=== PATIENT | male | born 1980 | race Caucasian/White ===

== ENCOUNTER 2016-08-20 10:10 | Emergency (ER) | payer OTHER ==
[~2016-08-20] VITALS: Ht 167.6 cm; Wt 63.5 kg
[~2016-08-20 10:10] MED LIST: ANTIVERT 25MG #1 PAC PO; AUGMENTIN 875 M1 TAB PO
[2016-08-20 10:15] VITALS: BP 132/78
--- NOTE | 2016-08-20 10:24 | ED AMS/SEIZURE/WEAK/DIZZY ---
History of Present Illness General Chief Complaint: Dizziness Stated Complaint: DIZZY LIGHTHEADED X 4DYS Source: patient Exam Limitations: no limitations Vital Signs & Intake/Output Vital Signs & Intake/Output Vital Signs Date Time Temp Pulse Resp B/P Pulse O2 O2 Flow FiO2 Ox Delivery Rate 08/20 1015 98.9 87 16 132/78 100 Room Air Allergies Coded Allergies: NO KNOWN ALLERGIES (11/01/11) Reconcile Medications AMOXICILLIN/POTASSIUM CLAV (Augmentin 875-125 Tablet) 875 MG/125 MG TAB 1 TAB PO BID SINUSITIS Meclizine (Antivert) 25 MG PAC 1-2 TAB PO TID PRN DIZZINESS Triage Note: PT TO ED FOR INTERMITTENT LIGHTHEADEDNESS X 4 DAYS AND BILATERAL KNEE PRESSURE. REPORTING SYMPTOMS MOSTLY RESOLVE WHEN HE LIES DOWN. DENIES CP, SOB, OLVERA, NAUSEA, VOMITING. Triage Nurses Notes Reviewed? yes HPI: Patient presents with feeling lightheaded and off balance and like he cannot get comfortable and like his muscles are very tense off for the past 4 days. The symptoms are constant. There are no aggravating or mitigating factors. He denies any muscle pain. He denies any fevers or chills. There is no difficulty breathing. There is no chest pain. There is no dysuria. Past History Travel History Traveled to [place] past 21 day No Medical History Any Pertinent Medical History? see below for history Neurological: NONE EENT: NONE Cardiovascular: NONE Respiratory: NONE Gastrointestinal: NONE Hepatic: NONE Renal: NONE Musculoskeletal: NONE Psychiatric: NONE Endocrine: NONE Blood Disorders: NONE Cancer(s): NONE Surgical History Surgical History: non-contributory, N Psychosocial History What is your primary language Hungarian Tobacco Use: Never used ETOH Use: occasional use Illicit Drug Use: denies illicit drug use Family History Hx Contributory? No Review of Systems Review of Systems Constitutional: Reports: no symptoms. EENTM: Reports: no symptoms. Respiratory: Reports: no symptoms. Cardiovascular: Reports: no symptoms. GI: Reports: no symptoms. Genitourinary: Reports: no symptoms. Musculoskeletal: Reports: see HPI, muscle stiffness. Skin: Reports: no symptoms. Neurological/Psychological: Reports: see HPI. Hematologic/Endocrine: Reports: no symptoms. Immunologic/Allergic: Reports: no symptoms. All Other Systems: Reviewed and Negative Physical Exam Physical Exam General Appearance: well developed/nourished, alert, awake, anxious, mild distress Head: atraumatic, normal appearance Eyes: Bilateral: PERRL, EOMI. Ears, Nose, Throat: normal pharynx, normal ENT inspection, hearing grossly normal Neck: normal inspection, supple, full range of motion Respiratory: normal breath sounds, chest non-tender, no respiratory distress, lungs clear Cardiovascular: regular rate/rhythm, normal peripheral pulses Gastrointestinal: normal bowel sounds, soft, non-tender, no organomegaly Back: normal inspection, normal range of motion Extremities: normal range of motion, MUSCLES ARE VERY TENSE AND IT TAKES A WHILE TO GET HIM TO RELAX ENOUGH TO RELAX HIS MUSCLES. Neurologic/Psych: no motor/sensory deficits, awake, alert, oriented x 3, normal gait, normal mood/affect Reflexes: 3+: bicep (R), bicep (L), knee (R), knee (L), ankle (R), ankle (L). Skin: intact, normal color, warm/dry Lymphatic: no anterior cervical gisella Core Measures ACS in differential dx? No CVA/TIA Diagnosis: No Severe Sepsis Present: No Septic Shock Present: No Progress Differential Diagnosis: drug intoxication, electrolyte imbalance, multiple sclerosis Plan of Care: Orders Procedure Date/time Status Add-on Test (ER Only) 08/20 1049 Active URINE DRUGS OF ABUSE 08/20 1040 Complete URINALYSIS 08/20 1040 Complete THYROID STIMULATING HORMONE 08/20 1040 Complete TROPONIN LEVEL 08/20 1040 Complete ETHANOL 08/20 1040 Complete COMPREHENSIVE METABOLIC PANEL 08/20 1040 Complete CREATINE PHOSPHOKINASE 08/20 1040 Complete CBC WITHOUT DIFFERENTIAL 08/20 1040 Complete EKG 08/20 1016 Active Laboratory Tests 08/20/16 1105: Serum Alcohol < 10.0 08/20/16 1105: Anion Gap 12, Estimated GFR > 60, BUN/Creatinine Ratio 15.0, Glucose 110 H, Calcium 10.4 H, Total Bilirubin 0.8, AST 14 L, ALT 32, Alkaline Phosphatase 60 , Creatine Kinase 47 L, Troponin I < 0.01, Total Protein 8.1, Albumin 4.9, Globulin 3.2, Albumin/Globulin Ratio 1.5, TSH 0.880, CBC w Diff NO MAN DIFF REQ, RBC 5.50, MCV 85.3, MCH 28.3, RDW 13.3, MPV 7.7, Gran % 71.9, Lymphocytes % 17.5 L, Monocytes % 7.6, Eosinophils % 2.0, Basophils % 1.0, Absolute Granulocytes 5.8, Absolute Lymphocytes 1.4, Absolute Monocytes 0.6, Absolute Eosinophils 0.2, Absolute Basophils 0.1, PUBS MCHC 33.2, Urine Opiates Screen < 100.00, Methadone Screen < 40, Barbiturate Screen < 60, Ur Phencyclidine Scrn < 6.00, Amphetamines Screen < 100, U Benzodiazepines Scrn < 85, Urine Cocaine Screen < 50, Urine Cannabis Screen < 5.00, Urine Color YEL, Urine Clarity CLEAR, Urine pH 7.0, Ur Specific [place] 1.010, Urine Protein NEG, Urine Ketones NEG, Urine Nitrite NEG, Urine Bilirubin NEG, Urine Urobilinogen 0.2, Ur Leukocyte Esterase NEG, Ur Microscopic EXAM NOT REQUIRED, Urine Hemoglobin NEG, Urine Glucose NEG Initial ED EKG: NSR, no ST T wave changes Departure Departure Disposition: HOME OR SELF CARE Condition: Stable Clinical Impression Primary Impression: Muscle hypertonicity Referrals: SHAWANDA VARGAS MD (PCP/Family) MAKENNA VICTORIA,ARMINDA Parsons Additional Instructions: FOLLOW UP WITH DR. MENSAH Departure Forms: Customer Survey General Discharge Information
[2016-08-20 11:23] LABS: ABSOLUTE BASOPHIL COUNT 0.1 /CUMM (0.0-0.2); ABSOLUTE EOSINOPHIL COUNT 0.2 /CUMM (0.0-0.7); ABSOLUTE GRANULOCYTE CT 5.8 /CUMM (1.4-6.5); ABSOLUTE LYMPH COUNT 1.4 /CUMM (1.2-3.4); ABSOLUTE MONOCYTE COUNT 0.6 /CUMM (0.10-0.60); GRANULOCYTE % 71.9 % (42.2-75.2); HEMATOCRIT 46.9 % (42-52); MEAN CORPUSCULAR HGB 28.3 PG (27.0-31.0); MEAN CORPUSCULAR HGB CONC 33.2 G/DL (33.0-37.0); MEAN CORPUSCULAR VOLUME 85.3 FL (80.0-94.0); MEAN PLATELET VOLUME 7.7 FL (7.4-10.4); PLATELET COUNT 318 /CUMM (130-400); RBC DISTRIBUTION WIDTH 13.3 % (11.5-14.5); WHITE BLOOD CELL COUNT 8.1 /CUMM (4.8-10.8)
== END 2016-08-20 12:50 ==
LOC: ERH 10:10
PROVIDERS: Emergency Medicine
DX: R42 Dizziness and giddiness (principal)
CPT/HCPCS: 80307; 81003; 93005; 93010; G0480